=== PATIENT | male | born 1990 | race Caucasian/White ===

== ENCOUNTER 2022-08-23 22:25 | Emergency (ER) | payer OTHER ==
[2022-08-23 23:37] LABS: CORONAVIRUS COVID-19 NAA NEGATIVE (NEGATIVE)
== END 2022-08-23 23:57 | disposition home or self-care (01) ==
LOC: JP.ED 22:25
DX: J10.1 Influenza due to other identified influenza virus with other respiratory manifestations (principal); Z88.2 Allergy status to sulfonamides; Z20.822 Contact with and (suspected) exposure to COVID-19
CPT/HCPCS: 0241U; 99283

== ENCOUNTER 2024-11-13 00:37 | Emergency (ER) | payer OTHER ==
[2024-11-13 01:35] LABS: BASOPHILS ABSOLUTE AUTO 0.05 K/uL (0.00-0.10); BASOPHILS PERCENT AUTO 0.4 % (0.1-1.3); EOSINOPHILS ABSOLUTE AUTO 0.08 K/uL (0.00-0.40); EOSINOPHILS PERCENT AUTO 0.6 % (0.0-5.4); HEMATOCRIT 44.4 % (38.4-49.7); HEMOGLOBIN 15.4 g/dL (12.9-16.9); IMMATURE GRAN ABSOLUTE AUTO 0.03 K/uL (0.00-0.23); IMMATURE GRAN PERCENT AUTO 0.2 % (0.0-0.7); LYMPHOCYTES ABSOLUTE AUTO 1.32 K/uL (0.8-3.3); LYMPHOCYTES PERCENT AUTO 9.7 % (11.4-47.7); MEAN CORPUSCULAR HEMOGLOBIN 30.4 pg (31.6-35.5); MEAN CORPUSCULAR HGB CONC 34.7 g/dL (31.6-35.5); MEAN CORPUSCULAR VOLUME 87.7 fL (81.4-99.0); MONOCYTES ABSOLUTE AUTO 0.94 K/uL (0.20-0.90); MONOCYTES PERCENT AUTO 6.9 % (3.3-12.6); NEUTROPHILS ABSOLUTE AUTO 11.14 K/uL (1.0-7.6); NEUTROPHILS PERCENT AUTO 82.2 % (40.0-78.1); PLATELET COUNT,PLT 212 K/uL (130-375); RED BLOOD CELL COUNT 5.06 M/uL (4.14-5.76); WHITE BLOOD CELL COUNT,WBC 13.6 K/uL (3.2-11.0)
[2024-11-13 01:55] LABS: A/G RATIO 1.4 (1.2-2.2); ALANINE AMINOTRANSFERASE,ALT 49 U/L (12-78); ALBUMIN 4.6 g/dL (3.4-5.0); ALKALINE PHOSPHATASE 74 U/L (46-116); ANION GAP 6.8 mmol/L (5.0-14.0); ASPARTATE AMNIOTRANSFERASE,AST 26 U/L (15-37); BILIRUBIN TOTAL 0.3 mg/dL (0.2-1.0); BLOOD UREA NITROGEN,BUN 14 mg/dL (7-18); CALCIUM 9.2 mg/dL (8.5-10.1); CARBON DIOXIDE,CO2 31 mmol/L (21-32); CHLORIDE,CL 102 mmol/L (100-108); CREATININE 1.1 mg/dL (0.8-1.3); EST CRCL DRUG DOSING (CG) 90.55 mL/min; ESTIMATED GFR 90 mL/min (>60); GLUCOSE RANDOM 105 mg/dL (74-106); POTASSIUM,K 3.9 mmol/L (3.6-5.2); PROTEIN TOTAL,TP 7.8 g/dL (6.4-8.2); SODIUM,NA 140 mmol/L (140-148)
[2024-11-13] MEDS: Ondansetron 4 MG Tab.DIS PO ONE (02:42)
== END 2024-11-13 03:08 | disposition home or self-care (01) ==
LOC: JP.ED 00:37
DX: R10.33 Periumbilical pain (principal); Z88.2 Allergy status to sulfonamides; Z79.51 Long term (current) use of inhaled steroids; Z79.899 Other long term (current) drug therapy; Z86.16 Personal history of COVID-19
CPT/HCPCS: 36415; 80053; 83690; 85025; 99284; Q0162

== ENCOUNTER 2024-12-22 06:49 | Day surgery (SDC) | payer OTHER ==
[2024-12-22] MEDS ORDERED: Neostigmine Methylsulfate 10 MG/10 ML MDV ONE (07:03)
[2024-12-22] MEDS ORDERED: Rocuronium 50 MG/5 ML Vial ONE (07:03)
[2024-12-22] MEDS ORDERED: Dexamethasone 4 MG/ML SDV ONE (07:03)
[2024-12-22] MEDS ORDERED: Glycopyrrolate 0.2 MG/ML 5 ML MDV ONE (07:03)
[2024-12-22] MEDS ORDERED: Propofol 200 MG/20 ML SDV ONE (07:03)
[2024-12-22] MEDS ORDERED: Ondansetron 4 MG/2 ML SDV ONE (07:03)
[2024-12-22] MEDS ORDERED: fentaNYL 250 MCG/5 ML SDV ONE (07:04)
[2024-12-22 07:09] LABS: HEMATOCRIT 46.6 % (38.4-49.7); HEMOGLOBIN 15.7 g/dL (12.9-16.9); MEAN CORPUSCULAR HEMOGLOBIN 30.1 pg (31.6-35.5); MEAN CORPUSCULAR HGB CONC 33.7 g/dL (31.6-35.5); MEAN CORPUSCULAR VOLUME 89.4 fL (81.4-99.0); RED BLOOD CELL COUNT 5.21 M/uL (4.14-5.76); WHITE BLOOD CELL COUNT,WBC 5.1 K/uL (3.2-11.0)
[2024-12-22 07:30] LABS: A/G RATIO 1.3 (1.2-2.2); ALANINE AMINOTRANSFERASE,ALT 58 U/L (12-78); ALBUMIN 4.2 g/dL (3.4-5.0); ALKALINE PHOSPHATASE 78 U/L (46-116); ASPARTATE AMNIOTRANSFERASE,AST 27 U/L (15-37); BILIRUBIN TOTAL 0.3 mg/dL (0.2-1.0); BLOOD UREA NITROGEN,BUN 17 mg/dL (7-18); CALCIUM 9.1 mg/dL (8.5-10.1); CARBON DIOXIDE,CO2 31 mmol/L (21-32); CHLORIDE,CL 104 mmol/L (100-108); CREATININE 1.2 mg/dL (0.8-1.3); EST CRCL DRUG DOSING (CG) 80.21 mL/min; ESTIMATED GFR 81 mL/min (>60); GLUCOSE RANDOM 96 mg/dL (74-106); POTASSIUM,K 3.5 mmol/L (3.6-5.2); PROTEIN TOTAL,TP 7.4 g/dL (6.4-8.2); SODIUM,NA 144 mmol/L (140-148)
[2024-12-22 07:31] LABS: ANION GAP 12.5 mmol/L (5.0-14.0)
[2024-12-22] MEDS: Indocyanine Green 25 MG SDV IV ONE (07:35)
[2024-12-22] MEDS: Lactated Ringers 1,000 ML IV SCH (07:37)
[2024-12-22] MEDS ORDERED: fentaNYL 100 MCG/2 ML SDV ONE (08:28)
[2024-12-22] MEDS: Bupivacaine 0.5% 50 ML MDV ONE (09:03)
[2024-12-22] MEDS ORDERED: Sugammadex Sodium 200 MG/2 ML VIAL IV ONE (09:03)
[2024-12-22] MEDS: Lidocaine 1% with EPINEPHrine 1:100,000 50 ML MDV ONE (09:04)
[2024-12-22] MEDS: Ropivacaine 28 ML, dexAMETHasone 8 MG, EPINEPHrine 0.4 MG, Sodium Chloride 0.9% 49.6 ML NERVRT SCH (09:05)
[2024-12-22] MEDS: ceFAZolin 2 GM in Premix Bag 1 BAG IV ONE (09:06)
[2024-12-22] MEDS: metroNIDAZOLE/Normal Saline 500 MG in Premix Bag 1 BAG IV ONE (09:06)
[2024-12-22] MEDS ORDERED: Lactated Ringers 1,000 ML ONE (09:09)
[2024-12-22] MEDS: Ondansetron 4 MG/2 ML SDV IVPUSH PRN (10:21)
[2024-12-22] MEDS: HYDROmorphone 0.5 MG/0.5 ML Syringe IVPUSH PRN (10:23)
[2024-12-22] MEDS: Scopalamine 1mg/3day Transdermal Patch TOP SCH (10:48)
[2024-12-22] MEDS: Acetaminophen/HYDROcodone 325-5 MG Tab PO PRN (12:14)
[2024-12-22] MEDS: droPERidol 5 MG/2 ML SDV IVPUSH ONE (12:32)
== END 2024-12-22 14:43 | disposition home or self-care (01) ==
LOC: JP.SDS 06:49
PROVIDERS: ATTEND Surgery
DX: K81.1 Chronic cholecystitis (principal); J45.909 Unspecified asthma, uncomplicated; Z88.2 Allergy status to sulfonamides
CPT/HCPCS: 00790; 36415; 47563; 80053; 85027; A9270; J0171; J0665; J0690; J1100; J1596; J1790; J1836; J2405; J2704; J2710; J2795; J3010; J7120; J3490

== ENCOUNTER 2025-04-16 08:09 | Day surgery (SDC) | payer OTHER ==
[~2025-04-16 08:09] MED LIST: Midazolam 1 MG/ML 2 ML SDV ONE; Propofol 200 MG/20 ML SDV ONE; fentaNYL 100 MCG/2 ML SDV ONE
[2025-04-16] MEDS: Scopalamine 1mg/3day Transdermal Patch TOP ONE (08:46)
[2025-04-16] MEDS: Lactated Ringers 1,000 ML IV SCH (08:55)
[2025-04-16] MEDS ORDERED: Ondansetron 4 MG/2 ML SDV ONE (09:14)
[2025-04-16] MEDS ORDERED: Glycopyrrolate 0.2 MG/ML 5 ML MDV ONE (09:32)
[2025-04-16] MEDS ORDERED: Propofol 200 MG/20 ML SDV ONE (09:56)
== END 2025-04-16 11:45 | disposition home or self-care (01) ==
LOC: JP.SDS 08:09
PROVIDERS: ATTEND Surgery
DX: K22.70 Barrett's esophagus without dysplasia (principal); K20.90 Esophagitis, unspecified without bleeding; K52.9 Noninfective gastroenteritis and colitis, unspecified; K63.89 Other specified diseases of intestine; K62.89 Other specified diseases of anus and rectum; K22.89 Other specified disease of esophagus; R94.8 Abnormal results of function studies of other organs and systems; R19.4 Change in bowel habit; Z88.2 Allergy status to sulfonamides
CPT/HCPCS: 00813; 43239; 45380; 88305; 88342; A9270; J1596; J2250; J2405; J2704; J3010; J7120

== ENCOUNTER 2025-06-07 01:06 | Emergency (ER) | payer OTHER ==
[2025-06-07 02:07] LABS: BASOPHILS ABSOLUTE AUTO 0.05 K/uL (0.00-0.10); BASOPHILS PERCENT AUTO 0.8 % (0.1-1.3); EOSINOPHILS ABSOLUTE AUTO 0.29 K/uL (0.00-0.40); EOSINOPHILS PERCENT AUTO 4.8 % (0.0-5.4); IMMATURE GRAN PERCENT AUTO 0.3 % (0.0-0.7); LYMPHOCYTES ABSOLUTE AUTO 1.83 K/uL (0.8-3.3); LYMPHOCYTES PERCENT AUTO 30.4 % (11.4-47.7); MONOCYTES ABSOLUTE AUTO 0.39 K/uL (0.20-0.90); MONOCYTES PERCENT AUTO 6.5 % (3.3-12.6); NEUTROPHILS ABSOLUTE AUTO 3.44 K/uL (1.0-7.6); NEUTROPHILS PERCENT AUTO 57.2 % (40.0-78.1); PLATELET COUNT,PLT 160 K/uL (130-375); RED BLOOD CELL COUNT 4.88 M/uL (4.14-5.76); WHITE BLOOD CELL COUNT,WBC 6.0 K/uL (3.2-11.0)
[2025-06-07 02:14] LABS: IMMATURE GRAN ABSOLUTE AUTO 0.02 K/uL (0.00-0.23)
[2025-06-07 02:27] LABS: BLOOD UREA NITROGEN,BUN 16.0 mg/dL (7-18); CARBON DIOXIDE,CO2 33.0 mmol/L (21-32); CHLORIDE,CL 103.0 mmol/L (100-108); CREATININE 0.9 mg/dL (0.8-1.3); EST CRCL DRUG DOSING (CG) 105.84 mL/min; ESTIMATED GFR 114.0 mL/min (>60); GLUCOSE RANDOM 80.0 mg/dL (74-106); POTASSIUM,K 3.5 mmol/L (3.6-5.2); SODIUM,NA 141.0 mmol/L (140-148); TROPONIN I HIGH SENSITIVITY 4.4 pg/mL (<=60.3)
== END 2025-06-07 02:43 | disposition home or self-care (01) ==
LOC: JP.ED 01:06
DX: R03.0 Elevated blood-pressure reading, without diagnosis of hypertension (principal); J45.909 Unspecified asthma, uncomplicated; Z86.16 Personal history of COVID-19; Z79.899 Other long term (current) drug therapy; Z88.2 Allergy status to sulfonamides; Z88.8 Allergy status to other drugs, medicaments and biological substances
CPT/HCPCS: 36415; 80048; 84484; 85025; 99284